=== PATIENT | male | born 1975 | race Caucasian/White ===

== ENCOUNTER 2016-11-15 13:40 | Emergency (ER) | payer OTHER ==
[2016-11-15 12:09] LABS: BASOPHILS 0.9 %; BASOPHILS ABSOLUTE 0.09 10/3/uL (0.0-0.16); EOSINOPHILS 0.4 %; EOSINOPHILS ABSOLUTE 0.04 10/3/uL (0.0-0.53); HEMATOCRIT 44.6 % (40.0-51.0); HEMOGLOBIN 14.5 g/dL (13.6-17.8); IMMATURE GRANULOCYTES 0.4 %; IMMATURE GRANULOCYTES ABSOLUTE 0.04 10/3/uL (0.0-0.11); LYMPHOCYTES 12.6 %; LYMPHOCYTES ABSOLUTE 1.25 10/3/uL (0.67-4.30); MEAN CORPUS HGB CONC 32.5 g/dL (32.0-36.0); MEAN CORPUSCULAR HEMOGLOB 27.9 pg (26.0-34.0); MEAN PLATELET VOLUME 9.1 fL (9.2-13.0); MONOCYTES 9.7 %; MONOCYTES ABSOLUTE 0.96 10/3/uL (0.21-1.20); NEUTROPHILS ABSOLUTE 7.54 10/3/uL (2.02-8.40); PLATELET COUNT 379 10/3/uL (150-400); RBC DISTRIBUTION WIDTH 15.5 % (12.0-16.0); RED CELL COUNT 5.19 10/6/uL (4.7-6.1)
[2016-11-15 12:10] LABS: ER CBC TAT 0 Hrs 11 Mins; MANUAL DIFF NO %; MEAN CORPUSCULAR VOLUME 85.9 fL (80-100); WHITE BLOOD CELLS 9.9 10/3/uL (4.5-10.5)
[2016-11-15 12:24] LABS: A/G RATIO 0.9 (0.7-1.9); ALBUMIN 3.7 G/DL (3.5-5.0); ALKALINE PHOSPHATASE 116 U/L (45-117); CALCIUM, SERUM 9.1 MG/DL (8.5-10.4); CHLORIDE, SERUM 98 MMOL/L (96-112); CREATININE 1.12 MG/DL (0.70-1.30); GFR AFRICAN AMERICAN 95 ML/MIN (>=60); GFR NON AFRICAN AMERICAN 82 ML/MIN (>=60); GLUCOSE, SERUM 120 MG/DL (60-99); POTASSIUM, SERUM 4.3 MMOL/L (3.5-5.3); SGOT(AST) 13 U/L (5-40); SGPT(ALT) 21 U/L (5-65); SODIUM, SERUM 133 MMOL/L (135-148); TOTAL BILIRUBIN 0.6 MG/DL (0-1.2); TOTAL PROTEIN 7.7 G/DL (6.0-8.5)
[2016-11-15 12:26] LABS: BUN (BLOOD UREA NITROGEN) 14 MG/DL (6-23); CO2 (CARBON DIOXIDE) 26 MMOL/L (24-34)
[~2016-11-15 13:40] MED LIST: ABILIFY15 PO; ADDERALL15 MG PO; AMIT75 PO; DUONEB INH; KLONO1 PO; KLONO2 PO; LEVOTHYROXIN150 MCG PO; LEXAPRO20 PO; LORTAB10 PO; MOMUD PO; NEUR600 PO; NICODERM C14 MG/24 H TOP; P20 PO; PCET PO; PLAQ200B PO; PROAIR HFA INH; ROXICODONE15 MG PO; STIOLTO RESPIMAT4 GM INH; VOLTAREN1 % TOP
[2016-11-15 13:51] LABS: TROPONIN I <0.02 NG/ML (<0.05)
[2016-11-19] MEDS ORDERED: ABILIFY15 PO (18:21)
[2016-11-19] MEDS ORDERED: LEXAPRO20 PO (18:22)
[2016-11-19] MEDS ORDERED: SYN.15 PO (18:28)
[2016-11-19] MEDS ORDERED: AMIT100 PO (18:28)
[2016-11-19] MEDS ORDERED: ROXICODONE15 MG PO (18:28)
[2016-11-19] MEDS ORDERED: SPIRIVA INH (18:31)
[2016-11-19] MEDS ORDERED: PLAQ200B PO (18:31)
[2016-11-19] MEDS ORDERED: ADVIL PO (18:31)
[2016-11-19] MEDS ORDERED: SULFAZINE500 MG PO (18:31)
[2016-11-19] MEDS ORDERED: STIOLTO RESPIMAT4 GM INH (18:32)
[2016-11-19] MEDS ORDERED: NICODERM C14 MG/24 H PO (18:32)
[2016-11-19] MEDS ORDERED: PROVENTSOL INH (18:32)
[2016-11-19] MEDS ORDERED: FLONASE NAS (18:32)
[2016-11-19] MEDS ORDERED: PROAIR HFA INH (18:32)
[2016-11-23] MEDS ORDERED: NORV10 PO (10:22)
[2016-11-23] MEDS ORDERED: GLUCOPHAGE1000 MG PO ×2 (10:23→10:24)
[2016-11-23] MEDS ORDERED: P20 PO (10:23)
[2016-11-23] MEDS ORDERED: T PO (10:25)
[2016-11-23] MEDS ORDERED: NICODERM C14 MG/24 H TOP (10:26)
[2016-11-23] MEDS ORDERED: BREO ELLIPTA 21 EACH INH (10:27)
== END 2016-11-15 20:28 | disposition home or self-care (01) ==
LOC: ER 13:40
PROVIDERS: Hospitalist
DX: J44.9 Chronic obstructive pulmonary disease, unspecified (principal); F17.200 Nicotine dependence, unspecified, uncomplicated; Z79.52 Long term (current) use of systemic steroids; Z79.899 Other long term (current) drug therapy
CPT/HCPCS: 71020; 80053; 84484; 85025; 87040; 93005; 94640; 96374; 99284; J2930